=== PATIENT | male | born 1955 | race Caucasian/White ===

== ENCOUNTER 2021-12-20 12:34 | Day surgery (SDC) | payer BC ==
[2021-12-15 12:28] LABS: BASOPHILS # (AUTO) 0.1 X10'3 (0-0.2); BASOPHILS % (AUTO) 1.6 % (0-1); EOSINOPHILS # (AUTO) 0.5 X10'3 (0-0.9); EOSINOPHILS % (AUTO) 5.6 % (0-6); HEMOGLOBIN 14.1 g/dl (14.0-17.9); LYMPHOCYTES # (AUTO) 2.2 X10'3 (1.1-4.8); MEAN CORPUSCULAR HEMOGLOBIN 27.3 PG (27.0-31.0); MEAN CORPUSCULAR HGB CONC 32.8 g/dL (33.0-36.5); MEAN CORPUSCULAR VOLUME 83.2 FL (78-98); MEAN PLATELET VOLUME 8.4 FL (7.4-10.4); MONOCYTES # (AUTO) 0.5 X10'3 (0-0.9); MONOCYTES % (AUTO) 6.7 % (2-12); NEUTROPHILS # (AUTO) 4.6 X10'3 (1.8-7.7); NEUTROPHILS % (AUTO) 58.1 % (42-75); PLATELET COUNT 211 X10'3 (140-440); RED BLOOD COUNT 5.17 X10'6 (4.70-6.10); RED CELL DISTRIBUTION WIDTH 14.6 % (11.5-14.5)
[2021-12-15 12:38] LABS: APTT 30 SECONDS (22-32)
[2021-12-15 12:41] LABS: ALBUMIN 3.3 G/DL (3.4-5.0); ANION GAP 11 (8-16); BLOOD UREA NITROGEN 23 MG/DL (7-18); BUN/CREATININE RATIO 16.3 (5.4-32.0); CALCIUM 8.9 MG/DL (8.5-10.1); CHLORIDE 107 MMOL/L (99-107); CHOL/HDL RATIO 2.9 (0.00-4.99); CHOLESTEROL 107 MG/DL (0-200); CREATININE 1.41 MG/DL (0.60-1.10); GLUCOSE 170 MG/DL (70-104); HDL CHOLESTEROL 37 MG/DL (35-60); LDL CHOLESTEROL 55 MG/DL (50-100); POTASSIUM 4.2 MMOL/L (3.5-5.1); SODIUM 143 MMOL/L (135-145); TOTAL CARBON DIOXIDE 25.3 MMOL/L (24-32); TRIGLYCERIDES 117 MG/DL (20-135); eGFR 50 ML/MIN
[2021-12-20] VITALS (9 sets, daily range): BP systolic 132–164; BP diastolic 72–101
[~2021-12-20] VITALS: Ht 188 cm; Wt 87.7 kg
[2021-12-20] MEDS ORDERED: LORazepam 0.5 MG tablet PO PRN (12:50)
[2021-12-20] MEDS ORDERED: diphenhydrAMINE 25mg capsule PO PRN (12:50)
[2021-12-20] MEDS ORDERED: normal saline 1,000 ML IV SCH (12:50)
[2021-12-20] MEDS ORDERED: METO50TA16 PO (13:10)
[2021-12-20] MEDS ORDERED: DORZ10DR10 OP (13:10)
[2021-12-20] MEDS ORDERED: MYCO250C46 PO (13:10)
[2021-12-20] MEDS ORDERED: vitamin d3 PO (13:10)
[2021-12-20] MEDS ORDERED: TACR1CAP PO (13:10)
[2021-12-20] MEDS ORDERED: UBID30CA11 PO (13:10)
[2021-12-20] MEDS ORDERED: PRED2.5T4 PO (13:10)
[2021-12-20] MEDS ORDERED: INSU100I25 SQ (13:10)
[2021-12-20] MEDS ORDERED: pregabalin PO (13:10)
[2021-12-20] MEDS ORDERED: ALBU6.7H14 INH (13:10)
[2021-12-20] MEDS ORDERED: ROSU40TA22 PO (13:10)
[2021-12-20] MEDS ORDERED: jardiance PO (13:10)
[2021-12-20] MEDS ORDERED: CLON-528 PO (13:10)
[2021-12-20] MEDS ORDERED: LATA7.5D OP (13:10)
[2021-12-20] MEDS ORDERED: nitroGLYCERIN-Tridil 50MG/D5W 250 ML IV ONE (15:04)
[2021-12-20] MEDS ORDERED: midazolam 1 mg/ML 2ml injection ONE (15:04)
[2021-12-20] MEDS ORDERED: verapamil 2.5 mg/ml inj IV ONE (15:04)
[2021-12-20] MEDS ORDERED: iohexol 350MG/ML 100ml bottle IV ONE (15:04)
[2021-12-20] MEDS ORDERED: fentaNYL/PF 50MCG/1 ML 2ML syringe ONE (15:04)
[2021-12-20] MEDS ORDERED: LIDOcaine 1% (10mg/ml) 2ml vial ONE (15:04)
[2021-12-20] MEDS ORDERED: heparin 1,000unit/ml 10ml vial 10 ML ONE (15:05)
[2021-12-20] MEDS ORDERED: LIDOcaine 1% 30ml preserv. free vial ONE (15:22)
[2021-12-20 15:58] LABS: ISTAT HGB ART 12.9 g/dl (14.0-18.0); ISTAT Hct ART 38 %PCV (42-52); ISTAT O2 SATURATION ARTERIAL 94 % (95-98); ISTAT SOURCE ART
[2021-12-20] MEDS ORDERED: HYDROcodone/acetaminophen 10/325mg tab PO PRN (16:35)
[2021-12-20] MEDS ORDERED: HYDROcodone/acetaminophen 5mg/325mg tablet PO PRN (16:35)
[2021-12-21 06:23] LABS: ISTAT Hct MIX 40 %PCV (42-52); ISTAT O2 SATURATION MIX VENOUS 63 % (60-80); ISTAT SOURCE VEN
== END 2021-12-20 19:55 | disposition home or self-care (01) ==
LOC: SSTAY O 12:34
PROVIDERS: ATTEND Student in an Organized Health Care Education/Training Program
DX: I35.0 Nonrheumatic aortic (valve) stenosis (principal); I12.0 Hypertensive chronic kidney disease with stage 5 chronic kidney disease or end stage renal disease; N18.6 End stage renal disease; E11.22 Type 2 diabetes mellitus with diabetic chronic kidney disease; E78.5 Hyperlipidemia, unspecified; Z98.890 Other specified postprocedural states; Z79.899 Other long term (current) drug therapy; Z94.0 Kidney transplant status; Z95.0 Presence of cardiac pacemaker; J45.909 Unspecified asthma, uncomplicated; Z88.6 Allergy status to analgesic agent; Z88.2 Allergy status to sulfonamides; Z91.041 Radiographic dye allergy status
CPT/HCPCS: 36415; 80048; 80061; 82803; 82948; 85014; 85025; 85610; 85730; 93005; 93456; C1769; C1894; J1644; J3490; J7030; Q0163; Q9967; A4620; A5120; A6258; A6449; J2250; J3010

== ENCOUNTER 2022-03-01 10:02 | Outpatient (CLI) | payer OTHER, BC ==
[~2022-03-01 10:02] MED LIST: ALBU6.7H14 INH; CLON-528 PO; DORZ10DR10 OP; INSU100I25 SQ; LATA7.5D OP; METO50TA16 PO; MYCO250C46 PO; PRED2.5T4 PO; ROSU40TA22 PO; TACR1CAP PO; UBID30CA11 PO; jardiance PO; pregabalin PO; vitamin d3 PO
[2022-03-01 10:39] LABS: BASOPHILS # (AUTO) 0.1 X10'3 (0-0.2); BASOPHILS % (AUTO) 1.3 % (0-1); EOSINOPHILS # (AUTO) 0.4 X10'3 (0-0.9); EOSINOPHILS % (AUTO) 4.8 % (0-6); HEMATOCRIT 45.3 % (42.0-52.0); HEMOGLOBIN 14.9 g/dl (14.0-17.9); LYMPHOCYTES # (AUTO) 2.2 X10'3 (1.1-4.8); LYMPHOCYTES % (AUTO) 25.9 % (21-51); MEAN CORPUSCULAR HEMOGLOBIN 27.1 PG (27.0-31.0); MEAN CORPUSCULAR VOLUME 82.3 FL (78-98); MEAN PLATELET VOLUME 8.6 FL (7.4-10.4); MONOCYTES # (AUTO) 0.6 X10'3 (0-0.9); MONOCYTES % (AUTO) 7.1 % (2-12); NEUTROPHILS # (AUTO) 5.2 X10'3 (1.8-7.7); NEUTROPHILS % (AUTO) 60.9 % (42-75); PLATELET COUNT 221 X10'3 (140-440); RED CELL DISTRIBUTION WIDTH 14.9 % (11.5-14.5); WHITE BLOOD COUNT 8.5 X10'3 (4.5-11.0)
[2022-03-01 10:55] LABS: APTT 31 SECONDS (22-32)
[2022-03-01 10:56] LABS: ALANINE AMINOTRANSFERASE 19 U/L (12-78); ALBUMIN 3.6 G/DL (3.4-5.0); ALBUMIN/GLOBULIN RATIO 0.9 (1.1-1.5); ALKALINE PHOSPHATASE 92 IU/L (46-116); ANION GAP 10 (8-16); ASPARTATE AMINO TRANSFERASE 21 U/L (10-37); BILIRUBIN,TOTAL 0.7 MG/DL (0.1-1.0); BLOOD UREA NITROGEN 27 MG/DL (7-18); BUN/CREATININE RATIO 17.1 (5.4-32.0); CALCIUM 9.5 MG/DL (8.5-10.1); CHLORIDE 104 MMOL/L (99-107); CREATININE 1.58 MG/DL (0.60-1.10); GLUCOSE 154 MG/DL (70-104); POTASSIUM 4.2 MMOL/L (3.5-5.1); SODIUM 139 MMOL/L (135-145); TOTAL CARBON DIOXIDE 25.1 MMOL/L (24-32); TOTAL PROTEIN 7.8 G/DL (6.4-8.2); eGFR 44 ML/MIN
[2022-03-01] MEDS ORDERED: IODIXANOL 320 MG/ML INFUS..BTL 100ML IV ONE (10:57)
== END 2022-03-01 23:59 | disposition home or self-care (01) ==
LOC: RAD 10:02
PROVIDERS: ATTEND Internal Medicine Cardiovascular Disease
DX: Z01.818 Encounter for other preprocedural examination (principal); I70.0 Atherosclerosis of aorta; K76.89 Other specified diseases of liver; N13.30 Unspecified hydronephrosis; N13.4 Hydroureter; I51.7 Cardiomegaly; K83.8 Other specified diseases of biliary tract; M47.814 Spondylosis without myelopathy or radiculopathy, thoracic region; I35.0 Nonrheumatic aortic (valve) stenosis; I65.29 Occlusion and stenosis of unspecified carotid artery; Z90.5 Acquired absence of kidney; Z94.0 Kidney transplant status; Z79.899 Other long term (current) drug therapy
CPT/HCPCS: 36415; 71046; 71275; 74174; 80053; 85025; 85610; 85730; 94010; 94727; 94729; J3490; Q9967

== ENCOUNTER 2022-05-15 17:17 | Emergency (ER) | payer OTHER ==
[~2022-05-15] VITALS: Ht 188 cm; Wt 88.6 kg
[~2022-05-15 17:17] MED LIST changes: -ALBU6.7H14 INH; +ALPH600C3 PO; +ASPI81TA47 PO; +CHOL20004 PO; +CLON-527 PO; -CLON-528 PO; +DORZ10DR10 EACHEYE; -DORZ10DR10 OP; +EMPA10TA PO; +FLO0.4C PO; +IMIP50TA7 PO; +INSU100C4 SQ; -LATA7.5D OP; +PREG100C55 PO; -jardiance PO; -pregabalin PO; -vitamin d3 PO
[2022-05-15 17:57] VITALS: BP 158/94
== END 2022-05-15 21:15 | disposition left against medical advice (07) ==
LOC: ER 17:18
DX: N18.9 Chronic kidney disease, unspecified (principal); Z53.21 Procedure and treatment not carried out due to patient leaving prior to being seen by health care provider

== ENCOUNTER 2022-08-21 10:54 | Day surgery (SDC) | payer OTHER ==
[~2022-08-21] VITALS: Ht 188 cm; Wt 71.0 kg
[~2022-08-21 10:54] MED LIST changes: -INSU100I25 SQ; +INSU100I27 SQ
[2022-08-21 11:45] VITALS: BP 143/99
[2022-08-21 11:54] LABS: BASOPHILS # (AUTO) 0.2 X10'3 (0-0.2); EOSINOPHILS # (AUTO) 1.7 X10'3 (0-0.9); EOSINOPHILS % (AUTO) 9.9 % (0-6); HEMATOCRIT 39.6 % (42.0-52.0); HEMOGLOBIN 12.5 g/dl (14.0-17.9); LYMPHOCYTES # (AUTO) 3.5 X10'3 (1.1-4.8); LYMPHOCYTES % (AUTO) 19.9 % (21-51); MEAN CORPUSCULAR HEMOGLOBIN 24.1 PG (27.0-31.0); MEAN CORPUSCULAR HGB CONC 31.7 g/dL (33.0-36.5); MEAN PLATELET VOLUME 8.3 FL (7.4-10.4); MONOCYTES # (AUTO) 1.4 X10'3 (0-0.9); MONOCYTES % (AUTO) 8.2 % (2-12); NEUTROPHILS # (AUTO) 10.7 X10'3 (1.8-7.7); PLATELET COUNT 407 X10'3 (140-440); RED BLOOD COUNT 5.21 X10'6 (4.70-6.10); RED CELL DISTRIBUTION WIDTH 15.3 % (11.5-14.5); WHITE BLOOD COUNT 17.5 X10'3 (4.5-11.0)
[2022-08-21 14:05] VITALS: BP 133/78
[2022-08-21] MEDS ORDERED: midazolam 1 mg/ML 2ml injection ONE (14:11)
[2022-08-21] MEDS ORDERED: fentaNYL/PF 50MCG/1 ML 2ML syringe ONE (14:11)
[2022-08-21 14:15] VITALS: BP 122/85
[2022-08-21 14:30] VITALS: BP 123/79
[2022-08-21 14:45] VITALS: BP 126/84
== END 2022-08-21 15:00 | disposition home or self-care (01) ==
LOC: SSTAY O 10:54
PROVIDERS: ATTEND Radiology Vascular & Interventional Radiology
DX: Z43.6 Encounter for attention to other artificial openings of urinary tract (principal); T86.19 Other complication of kidney transplant; N13.30 Unspecified hydronephrosis; Z91.041 Radiographic dye allergy status; Z79.82 Long term (current) use of aspirin; Z79.84 Long term (current) use of oral hypoglycemic drugs; Z79.899 Other long term (current) drug therapy; Y83.4 Other reconstructive surgery as the cause of abnormal reaction of the patient, or of later complication, without mention of misadventure at the time of the procedure
CPT/HCPCS: 36415; 50435; 82948; 85025; 99152; C1729; C1769; J2250; J3010; J7030; 50387; 99153; A4421; A6258